=== PATIENT | female | born 1990 | race Caucasian/White ===

== ENCOUNTER → 2020-02-17 17:42 | Observation (INO) ==
[2020-02-17 17:12] LABS: Amorphous Sediment,Urine Few per hpf (None-Few); Bacteria,Urine Few per hpf (None-Few); Bilirubin,Urine Negative (Negative); Blood,Urine Negative (Negative); Clarity,Urine Turbid (Clear); Color,Urine Light-Yellow (Yellow); Glucose,Urine (UA) Normal (Normal); Ketones,Urine Negative (Negative); Leukocyte Esterase,Urine Moderate (Negative); Mucus,Urine Few per lpf (None-Few); Nitrite,Urine Negative (Negative); PH,Urine 6.5 pH Units (5.0-8.0); Protein,Urine Trace mg/dL (Neg-Trace); Specific Gravity,Urine 1.015 (1.010-1.025); Sperm,Urine Present (None Seen); Squamous Epithelial Cell,Urine Few per hpf (None-Few); Urobilinogen,Urine Normal (Normal); WBC,Urine 15-30 per hpf (0-3)
== END | disposition home or self-care (01) ==
LOC: 1NENULAB
PROVIDERS: ADMIT Obstetrics & Gynecology; ATTEND Obstetrics & Gynecology

== ENCOUNTER 2020-03-19 05:31 | Inpatient (IN) ==
[2020-03-19] MEDS ORDERED: Naloxone 0.4 MG/ML INJ IVP PRN (05:33)
[2020-03-19] MEDS ORDERED: Metoclopramide 10 MG/2 ML VIAL IVP PRN ×2 (05:33→12:05)
[2020-03-19] MEDS ORDERED: Famotidine 20 MG/2 ML VIAL IVP PRN (05:33)
[2020-03-19] MEDS ORDERED: Ringers Solution, Lactated 1,000 ML IVC SCH ×2 (05:45→12:05)
[2020-03-19 06:10] LABS: Basophils % 0.3 %; Eosinophils # 0.1 K/mcL (0.0-0.6); Eosinophils % 1.1 %; Hematocrit 31.5 % (35.3-44.9); Hemoglobin 10.5 g/dL (11.5-15.4); Immature Granulocytes % 0.7 % (0-4); Lymphocytes # 1.3 K/mcL (0.6-4.6); Lymphocytes % 17.7 %; Mean Corpuscular HGB Conc 33.3 g/dL (31.6-35.5); Mean Corpuscular Hemoglobin 29.3 pg (28.0-33.3); Mean Platelet Volume 10.6 fL (9.4-12.4); Monocytes # 0.5 K/mcL (0.0-1.3); Monocytes % 6.1 %; Neutrophils # 5.6 K/mcL (1.6-8.9); Platelet Count 204 K/mcL (140-400); Red Blood Count 3.58 M/mcL (3.82-4.97); Red Cell Distribution Width 13.2 % (11.5-14.5); Segmented Neutrophils % 74.1 %; White Blood Count 7.5 K/mcL (4.3-11.1)
[2020-03-19] MEDS ORDERED: CeFAZolin 2,000 MG/50 ML BAG IVPB ONE (06:56)
[2020-03-19 07:00] LABS: Adenovirus Not Detected (Not Detect); Bordetella Pertussis Not Detected (Not Detect); Chlamydophila pneumoniae Not Detected (Not Detect); Coronavirus 229E Not Detected (Not Detect); Coronavirus HKU1 Not Detected (Not Detect); Coronavirus NL63 Not Detected (Not Detect); Coronavirus OC43 Not Detected (Not Detect); Human Metapneumovirus Not Detected (Not Detect); Human Rhinovirus/Enterovirus Not Detected (Not Detect); Influenza A Subtype 2009 H1 Not Detected (Not Detect); Influenza B Not Detected (Not Detect); Mycoplasma pneumoniae Not Detected (Not Detect); Parainfluenza Virus 1 Not Detected (Not Detect); Parainfluenza Virus 2 Not Detected (Not Detect); Parainfluenza Virus 3 Not Detected (Not Detect); Parainfluenza Virus 4 Not Detected (Not Detect); Respiratory Syncytial Virus Not Detected (Not Detect); SARS-CoV-2 Not Detected (Not Detect)
[2020-03-19] MEDS ORDERED: Oxytocin 20 units/ LR 1000 mL 20 UNIT/1,000 ML BAG IVC ONE ×2 (07:20→09:30)
[2020-03-19] MEDS ORDERED: *HR* Morphine Sulfate/PF 10 MG/10 ML AMPUL ONE (07:23)
[2020-03-19] MEDS ORDERED: *HR* FentaNYL (PF) 100 MCG/2 ML VIAL ONE (07:24)
[2020-03-19] MEDS ORDERED: EPHEDrine 50 MG/ML VIAL ONE (07:25)
[2020-03-19 07:53] LABS: Amphetamine Screen,Urine Negative ng/mL (Cutoff=1000); Barbiturate Screen,Urine Negative ng/mL (Cutoff=200)
[2020-03-19 07:54] LABS: Benzodiazepines Screen,Urine Negative ng/mL (Cutoff=300); Cannabinoid Screen,Urine Negative ng/mL (Cutoff = 50)
[2020-03-19 07:55] LABS: Cocaine Screen,Urine Negative ng/mL (Cutoff= 300); Opiate Screen,Urine Negative ng/mL (Cutoff=300); Phencyclidine Screen,Urine Negative ng/mL (Cutoff=25)
[2020-03-19] MEDS ORDERED: Dexamethasone 4 MG/ML VIAL ONE (08:39)
[2020-03-19] MEDS ORDERED: Ondansetron 4 MG/2 ML VIAL ONE (08:39)
[2020-03-19] MEDS ORDERED: Ketorolac 30 MG/ML VIAL ONE (08:39)
[2020-03-19] MEDS ORDERED: *HR* OxyCODONE/APAP 5/325 TABLET PO PRN (08:52)
[2020-03-19] MEDS ORDERED: *HR* HYDROmorphone (PF) 1 MG/ML SYRINGE IVP PRN (08:52)
[2020-03-19] MEDS ORDERED: Ondansetron 4 MG/2 ML VIAL IVP PRN ×2 (08:52→12:05)
[2020-03-19] MEDS ORDERED: Acetaminophen IV 1,000 MG/100 ML BAG IVPB ONE (08:53)
[2020-03-19] MEDS ORDERED: *HR* Promethazine 25 MG/ML VIAL ONE (08:55)
[2020-03-19] MEDS ORDERED: Sennosides 8.6 MG TABLET PO PRN (12:05)
[2020-03-19] MEDS ORDERED: Rho Immune Globulin 1,500 UNIT SYRINGE IM ONE (12:05)
[2020-03-19] MEDS ORDERED: Simethicone 80 MG TAB.CHEW PO PRN (12:05)
[2020-03-19] MEDS: *HR* OxyCODONE/APAP 5/325 TABLET PO PRN ×2 (12:43→20:00)
[2020-03-19] MEDS: Ibuprofen 600 MG TABLET PO PRN ×2 (12:43→18:31)
[2020-03-19] MEDS: Oxytocin 20 units/ LR 1000 mL 20 UNIT/1,000 ML BAG IVC SCH (16:41)
[2020-03-20] MEDS: Ibuprofen 600 MG TABLET PO PRN ×4 (00:40→21:12)
[2020-03-20] MEDS: *HR* OxyCODONE/APAP 5/325 TABLET PO PRN ×5 (01:00→22:35)
[2020-03-20] MEDS: Oxytocin 20 units/ LR 1000 mL 20 UNIT/1,000 ML BAG IVC SCH (01:25)
[2020-03-20 04:57] LABS: Basophils % 0.2 %; Eosinophils % 0.3 %; Hematocrit 23.1 % (35.3-44.9); Immature Granulocytes % 0.6 % (0-4); Lymphocytes # 1.2 K/mcL (0.6-4.6); Lymphocytes % 19.1 %; Mean Corpuscular Hemoglobin 28.9 pg (28.0-33.3); Mean Corpuscular Volume 90.2 fL (83.0-100.0); Mean Platelet Volume 9.6 fL (9.4-12.4); Monocytes # 0.5 K/mcL (0.0-1.3); Monocytes % 8.1 %; Neutrophils # 4.6 K/mcL (1.6-8.9); Platelet Count 193 K/mcL (140-400); Red Blood Count 2.56 M/mcL (3.82-4.97); Red Cell Distribution Width 13.3 % (11.5-14.5); Segmented Neutrophils % 71.7 %; White Blood Count 6.4 K/mcL (4.3-11.1)
[2020-03-20 04:58] LABS: Hemoglobin 7.4 g/dL (11.5-15.4)
[2020-03-20] MEDS: Prenatal Vit/FA 1 EACH TABLET PO SCH (07:37)
[2020-03-20] MEDS ORDERED: NON-FORMULARY MEDICATION 1 EACH EACH (Ferrous Sulfate 325 MG) PO SCH (09:00)
[2020-03-20 14:36] LABS: Hematocrit 23.1 % (35.3-44.9); Hemoglobin 7.5 g/dL (11.5-15.4); Immature Granulocytes % 0.8 % (0-4); Lymphocytes % 19.1 %; Mean Corpuscular HGB Conc 32.5 g/dL (31.6-35.5); Mean Corpuscular Volume 89.2 fL (83.0-100.0); Mean Platelet Volume 9.3 fL (9.4-12.4); Monocytes % 7.1 %; Platelet Count 192 K/mcL (140-400); Red Blood Count 2.59 M/mcL (3.82-4.97); Red Cell Distribution Width 13.3 % (11.5-14.5); Segmented Neutrophils % 71.7 %; White Blood Count 4.8 K/mcL (4.3-11.1)
[2020-03-20 14:37] LABS: Basophils % 0.2 %; Eosinophils # 0.1 K/mcL (0.0-0.6); Eosinophils % 1.1 %; Lymphocytes # 0.9 K/mcL (0.6-4.6); Monocytes # 0.3 K/mcL (0.0-1.3); Neutrophils # 3.4 K/mcL (1.6-8.9)
[2020-03-20 14:56] LABS: Albumin 2.8 g/dL (3.5-5.7); Albumin/Globulin Ratio 1.2 (1.1-2.2); Bilirubin,Direct 0.1 mg/dL (0.0-0.2); Bilirubin,Indirect 0.2 mg/dL (0.0-1.0); Bilirubin,Total 0.3 mg/dL (0.3-1.0); Globulin 2.4 g/dL (2.4-3.5); Total Protein 5.2 g/dL (6.4-8.9)
[2020-03-20] MEDS ORDERED: Lanolin 7 G OINT...G. TP PRN (22:18)
[2020-03-21] MEDS: *HR* OxyCODONE/APAP 5/325 TABLET PO PRN ×2 (02:34→07:22)
[2020-03-21] MEDS: Ibuprofen 600 MG TABLET PO PRN ×2 (02:35→09:16)
[2020-03-21] MEDS: Prenatal Vit/FA 1 EACH TABLET PO SCH (07:22)
[2020-03-21] MEDS: *HR* OxyCODONE Immed Rel 5 MG TABLET PO PRN ×4 (11:15→23:50)
[2020-03-21] MEDS: Ibuprofen 600 MG TABLET PO SCH ×2 (15:28→21:38)
[2020-03-21] MEDS: Acetaminophen 325 MG TABLET PO SCH ×2 (17:23→23:50)
[2020-03-22] MEDS: Ibuprofen 600 MG TABLET PO SCH (04:52)
[2020-03-22] MEDS: *HR* OxyCODONE Immed Rel 5 MG TABLET PO PRN ×2 (04:52→09:04)
[2020-03-22] MEDS ORDERED: Etonogestrel 68 MG IMPLANT IL ONE ×3 (07:23→08:15)
[2020-03-22] MEDS ORDERED: Lidocaine 1% 20 ML MDV ID ONE (07:24)
[2020-03-22] MEDS: Acetaminophen 325 MG TABLET PO SCH (07:46)
[2020-03-22] MEDS: Prenatal Vit/FA 1 EACH TABLET PO SCH (07:46)
[2020-03-22 07:49] VITALS: BP 129/70
== END 2020-03-22 11:02 | disposition home or self-care (01) | DRG 540 ==
LOC: 1NENULAB 05:31 → 1NENUOBS 12:05
PROVIDERS: ADMIT Student in an Organized Health Care Education/Training Program; ATTEND Student in an Organized Health Care Education/Training Program